=== PATIENT | male | born 1950 | race Two or more races ===

== ENCOUNTER → 2022-07-06 | Emergency (ER) | payer OTHER ==
[~2022-07-06] VITALS: Ht 175.3 cm; Wt 113.4 kg
[~2022-07-06] MED LIST: AMBIEN5 MG PO; COZAAR100 MG PO; TRAMADOL HCL E100 M1
== END | disposition left against medical advice (07) ==
LOC: ER 17:57
DX: R07.9 Chest pain, unspecified (principal); I10 Essential (primary) hypertension

== ENCOUNTER 2023-09-05 09:37 | Outpatient (CLI) | payer OTHER ==
[~2023-09-05 09:37] MED LIST changes: +LASIX40 MG; +METFORMIN HCL1000 M1
== END 2023-09-05 09:38 | disposition home or self-care (01) ==
LOC: NUCLEAR 09:37
PROVIDERS: ATTEND Internal Medicine Cardiovascular Disease
DX: I20.9 Angina pectoris, unspecified (principal)

== ENCOUNTER 2023-12-15 05:50 | Emergency (ER) | payer OTHER ==
[~2023-12-15] VITALS: Ht 157.5 cm; Wt 113.4 kg
[2023-12-15] MEDS ORDERED: PLAVIX75 MG PO (06:03)
[2023-12-15] MEDS ORDERED: ACETAMINOPHEN 500 MG GEL..CAP PO STA (06:22)
== END 2023-12-15 07:39 | disposition home or self-care (01) ==
LOC: ER 05:50
DX: S00.03XA Contusion of scalp, initial encounter (principal); W18.39XA Other fall on same level, initial encounter; Y93.89 Activity, other specified; Y92.013 Bedroom of single-family (private) house as the place of occurrence of the external cause; Y99.9 Unspecified external cause status; Z88.8 Allergy status to other drugs, medicaments and biological substances; E11.9 Type 2 diabetes mellitus without complications; Z79.84 Long term (current) use of oral hypoglycemic drugs

== ENCOUNTER 2023-12-30 14:05 | Emergency (ER) | payer OTHER ==
[~2023-12-30] VITALS: Ht 157.5 cm; Wt 111.6 kg
[~2023-12-30 14:05] MED LIST changes: +PLAVIX75 MG PO
[2023-12-30] MEDS ORDERED: CHILDREN'S ASPI81 MG PO (14:36)
[2023-12-30] MEDS ORDERED: GLIMEPIRIDE2 M1 PO (14:40)
[2023-12-30] MEDS ORDERED: AMBIEN CR12.5 MG PO (14:41)
[2023-12-30] MEDS ORDERED: TRAMADOL HCL E100 M1 PO (14:42)
[2023-12-30] MEDS ORDERED: TOPROL XL50 M1 PO (14:42)
[2023-12-30] MEDS ORDERED: LASIX40 MG PO (14:42)
[2023-12-30] MEDS ORDERED: CLONAZEPAM2 MG PO (14:42)
[2023-12-30] MEDS ORDERED: ISORDIL TITRADOS5 MG PO (14:43)
[2023-12-30] MEDS ORDERED: ATORVASTATIN CA40 MG PO (14:43)
[2023-12-30] MEDS ORDERED: HORIZANT300 MG PO (14:44)
[2023-12-30] MEDS ORDERED: FAMOtidine 10 MG/ML (4ML VIAL) IV ONE (15:45)
[2023-12-30] MEDS ORDERED: 0.9 % SODIUM CHLORIDE 1,000 ML IV ONE (16:00)
[2023-12-30 16:58] LABS: HEMATOCRIT 39.5 % (39.0-48.0); HEMOGLOBIN 13.2 g/dL (13-16.00); MEAN CELL VOLUME 88.7 fL (80.0-100.00); MEAN CORPUSCULAR HEMOGLOBIN 29.6 pg (27.00-32.0); MEAN CORPUSCULAR HGB CONC 33.4 g/dl (32.0-36.0); PLATELET COUNT 157 K/uL (150-450); RED BLOOD COUNT 4.45 M/uL (4.00-6.00); RED CELL DISTRIBUTION WIDTH 14.4 % (11.5-14.5)
[2023-12-30 17:14] LABS: INR 1.02; PROTHROMBIN TIME 11.1 SECONDS (9.0-11.5)
[2023-12-30 17:19] LABS: ALBUMIN 3.5 gm/dL (3.4-5.0); BILIRUBIN TOTAL 0.64 mg/dL (0.3-1.2); CALCIUM 9.4 mg/dL (8.5-10.1); CREATININE SERUM 1.61 mg/dL (0.70-1.30); GFR 42.04; GLOBULINA 4.1 G/DL (2.4-3.5); POTASSIUM 4.56 mEq/L (3.5-5.1); TOTAL PROTEIN 7.6 gm/dL (6.4-8.2)
[2023-12-30 18:34] LABS: FECAL LEUKOCYTES POSITIVE (NEGATIVE); ob NEGATIVE (NEGATIVE)
[2023-12-30] MEDS ORDERED: METRONIDAZOLE500 MG PO (18:43)
[2023-12-30] MEDS ORDERED: PEPCID AC20 MG PO (18:43)
== END 2023-12-30 19:12 | disposition home or self-care (01) ==
LOC: ER 14:07
PROVIDERS: General Practice
DX: R19.7 Diarrhea, unspecified (principal); Z20.822 Contact with and (suspected) exposure to COVID-19; I10 Essential (primary) hypertension; E11.9 Type 2 diabetes mellitus without complications; Z88.6 Allergy status to analgesic agent

== ENCOUNTER 2024-01-01 09:08 | Emergency (ER) | payer OTHER ==
[~2024-01-01] VITALS: Ht 175.3 cm; Wt 64.0 kg
[~2024-01-01 09:08] MED LIST changes: +AMBIEN CR12.5 MG PO; +ATORVASTATIN CA40 MG PO; +CHILDREN'S ASPI81 MG PO; +CLONAZEPAM2 MG PO; +GLIMEPIRIDE2 M1 PO; +HORIZANT300 MG PO; +ISORDIL TITRADOS5 MG PO; +LASIX40 MG PO; +METRONIDAZOLE500 MG PO; +PEPCID AC20 MG PO; +TOPROL XL50 M1 PO; +TRAMADOL HCL E100 M1 PO
[2024-01-01] MEDS ORDERED: METRONIDAZOLE/SODIUM CHLORIDE 500 MG/100 ML PIGGYBACK IV ONE (09:45)
[2024-01-01] MEDS ORDERED: CIPROFLOXACIN IN 5 % DEXTROSE 400 MG/200 ML PIGGYBAG IV ONE (09:45)
[2024-01-01] MEDS ORDERED: 0.9 % SODIUM CHLORIDE 1,000 ML IV SCH (09:45)
[2024-01-01 11:12] LABS: HEMATOCRIT 34.3 % (39.0-48.0); HEMOGLOBIN 11.4 g/dL (13-16.00); MEAN CELL VOLUME 89.8 fL (80.0-100.00); MEAN CORPUSCULAR HEMOGLOBIN 29.8 pg (27.00-32.0); MEAN CORPUSCULAR HGB CONC 33.2 g/dl (32.0-36.0); PLATELET COUNT 142 K/uL (150-450); RED BLOOD COUNT 3.81 M/uL (4.00-6.00); RED CELL DISTRIBUTION WIDTH 14.2 % (11.5-14.5)
== END 2024-01-01 13:09 | disposition home or self-care (01) ==
LOC: ER 09:08
PROVIDERS: Emergency Medicine
DX: K52.89 Other specified noninfective gastroenteritis and colitis (principal); Z88.8 Allergy status to other drugs, medicaments and biological substances

== ENCOUNTER 2024-01-04 11:46 | Emergency (ER) | payer OTHER ==
[~2024-01-04] VITALS: Ht 175.3 cm; Wt 113.4 kg
[2024-01-04 12:08] VITALS: BP 151/69; O2SAT 95
[2024-01-04] MEDS ORDERED: 0.9 % SODIUM CHLORIDE 1,000 ML IV SCH (12:18)
[2024-01-04] MEDS ORDERED: LOPERAMIDE HCL 2 MG CAPSULE PO ONE (12:30)
[2024-01-04 13:19] LABS: HEMATOCRIT 35.4 % (39.0-48.0); MEAN CELL VOLUME 88.5 fL (80.0-100.00); MEAN CORPUSCULAR HEMOGLOBIN 29.9 pg (27.00-32.0); MEAN CORPUSCULAR HGB CONC 33.8 g/dl (32.0-36.0); PLATELET COUNT 160 K/uL (150-450); RED CELL DISTRIBUTION WIDTH 14.4 % (11.5-14.5)
[2024-01-04 13:53] LABS: CALCIUM 9.2 mg/dL (8.5-10.1); CREATININE SERUM 1.39 mg/dL (0.70-1.30); GFR 49.81; POTASSIUM 3.78 mEq/L (3.5-5.1)
[2024-01-04 13:59] LABS: PH,URINE 5.5 (5.0-8.0); URINE APPEARANCE Clear; URINE BILIRRUBIN Negative (NEGATIVE); URINE BLOOD Negative; URINE COLOR Yellow; URINE GLUCOSE Negative (NEGATIVE); URINE KETONE Negative (NEGATIVE); URINE LEUKOCYTE Negative; URINE NITRATE Negative; URINE PROTEIN 30 (NEGATIVE); URINE UROBILINOGEN 0.2 E.U./dl
[2024-01-04 14:13] LABS: URINE BACTERIA 3.7 uL (0.0-1933); URINE CAST 0.45 uL (0.0-1.40); URINE RBC 0.1 uL (0.0-20.8)
[2024-01-04] MEDS ORDERED: METRONIDAZOLE/SODIUM CHLORIDE 500 MG/100 ML PIGGYBACK IV ONE (15:00)
[2024-01-04] MEDS ORDERED: CIPROFLOXACIN IN 5 % DEXTROSE 400 MG/200 ML PIGGYBAG IV ONE (15:00)
== END 2024-01-04 17:37 | disposition home or self-care (01) ==
LOC: ER 11:46
PROVIDERS: Emergency Medicine
DX: K52.9 Noninfective gastroenteritis and colitis, unspecified (principal); I10 Essential (primary) hypertension; E11.9 Type 2 diabetes mellitus without complications; Z79.84 Long term (current) use of oral hypoglycemic drugs; Z88.8 Allergy status to other drugs, medicaments and biological substances

== ENCOUNTER 2024-01-09 12:40 | Emergency (ER) | payer OTHER ==
[~2024-01-09] VITALS: Ht 175.3 cm; Wt 113.9 kg
[2024-01-09] MEDS ORDERED: 0.9 % SODIUM CHLORIDE 500 ML IV ONE (15:00)
[2024-01-09] MEDS ORDERED: LACTOBACILLUS ACIDOPHILUS 1 CAP CAP PO ONE (15:00)
[2024-01-09 16:45] LABS: ALBUMIN 3.2 gm/dL (3.4-5.0); BILIRUBIN TOTAL 0.36 mg/dL (0.3-1.2); CALCIUM 8.6 mg/dL (8.5-10.1); CREATININE SERUM 1.32 mg/dL (0.70-1.30); GFR 52.87; GLOBULINA 3.6 G/DL (2.4-3.5); POTASSIUM 4.46 mEq/L (3.5-5.1); TOTAL PROTEIN 6.8 gm/dL (6.4-8.2)
[2024-01-09] MEDS ORDERED: LOSARTAN POTASSIUM 100 MG TABLET PO ONE (17:45)
[2024-01-09 17:59] LABS: ob POSITIVE (NEGATIVE)
[2024-01-09 18:00] LABS: FECAL LEUKOCYTES NEGATIVE (NEGATIVE)
[2024-01-09 18:10] LABS: HEMATOCRIT 35.8 % (39.0-48.0); HEMOGLOBIN 12.5 g/dL (13-16.00); MEAN CELL VOLUME 88.7 fL (80.0-100.00); MEAN CORPUSCULAR HEMOGLOBIN 30.9 pg (27.00-32.0); MEAN CORPUSCULAR HGB CONC 34.8 g/dl (32.0-36.0); PLATELET COUNT 154 K/uL (150-450); RED BLOOD COUNT 4.04 M/uL (4.00-6.00); RED CELL DISTRIBUTION WIDTH 14.5 % (11.5-14.5)
[2024-01-09 18:27] LABS: PH,URINE 5.5 (5.0-8.0); URINE APPEARANCE Clear; URINE BILIRRUBIN Negative (NEGATIVE); URINE BLOOD Negative; URINE COLOR Yellow; URINE GLUCOSE Negative (NEGATIVE); URINE KETONE Negative (NEGATIVE); URINE LEUKOCYTE Negative; URINE NITRATE Negative; URINE PROTEIN Negative (NEGATIVE); URINE UROBILINOGEN 0.2 E.U./dl
[2024-01-09 18:35] LABS: URINE EPITHELIAL CELLS 0.3 uL (0.0-38.8); URINE RBC 0.4 uL (0.0-20.8)
[2024-01-09] MEDS ORDERED: TRAMADOL HCL 50 MG TABLET PO ONE (20:45)
[2024-01-09] MEDS ORDERED: INTESTINEX680 M1 PO (22:09)
== END 2024-01-09 22:30 | disposition home or self-care (01) ==
LOC: ER 12:40
PROVIDERS: Emergency Medicine; Nurse Practitioner Family
DX: R19.5 Other fecal abnormalities (principal); K80.20 Calculus of gallbladder without cholecystitis without obstruction; J98.11 Atelectasis; E11.9 Type 2 diabetes mellitus without complications; I10 Essential (primary) hypertension; Z88.8 Allergy status to other drugs, medicaments and biological substances

== ENCOUNTER 2024-01-30 18:55 | Emergency (ER) | payer OTHER ==
[~2024-01-30] VITALS: Ht 165.1 cm; Wt 90.7 kg
[~2024-01-30 18:55] MED LIST changes: +INTESTINEX680 M1 PO
[2024-01-30] MEDS ORDERED: MINERAL OIL 30 ML BLIST.PACK PO ONE (19:15)
[2024-01-30] MEDS ORDERED: MAGNESIUM HYDROXIDE 400 MG/5 ML ML PO ONE (19:15)
[2024-01-30] MEDS ORDERED: LACTULOSE 20 G/30 ML BLIST.PACK PO ONE (19:15)
[2024-01-30 19:58] VITALS: BP 150/80; O2SAT 94
== END 2024-01-30 22:53 | disposition home or self-care (01) ==
LOC: ER 18:55
DX: K59.00 Constipation, unspecified (principal); Z88.8 Allergy status to other drugs, medicaments and biological substances; E11.9 Type 2 diabetes mellitus without complications; Z79.84 Long term (current) use of oral hypoglycemic drugs; I11.9 Hypertensive heart disease without heart failure; Z20.822 Contact with and (suspected) exposure to COVID-19

== ENCOUNTER 2024-02-14 16:04 | Emergency (ER) | payer OTHER ==
[~2024-02-14] VITALS: Ht 170.2 cm; Wt 110.7 kg
[2024-02-14 16:22] VITALS: BP 152/86; O2SAT 96
[2024-02-14 17:33] LABS: HEMOGLOBIN 13.2 g/dL (13-16.00); MEAN CELL VOLUME 86.6 fL (80.0-100.00); MEAN CORPUSCULAR HEMOGLOBIN 29.2 pg (27.00-32.0); MEAN CORPUSCULAR HGB CONC 33.7 g/dl (32.0-36.0); PLATELET COUNT 144 K/uL (150-450); RED CELL DISTRIBUTION WIDTH 14.4 % (11.5-14.5)
[2024-02-14 17:58] LABS: URINE APPEARANCE Clear; URINE BILIRRUBIN Negative (NEGATIVE); URINE BLOOD Negative; URINE COLOR Yellow; URINE KETONE Negative (NEGATIVE); URINE LEUKOCYTE Negative; URINE NITRATE Negative; URINE PROTEIN Negative (NEGATIVE); URINE UROBILINOGEN 0.2 E.U./dl
[2024-02-14 18:00] LABS: URINE BACTERIA 9.7 uL (0.0-1933); URINE EPITHELIAL CELLS 2.8 uL (0.0-38.8); URINE WBC 1.8 uL (0.0-23.2)
[2024-02-14 18:03] LABS: ALBUMIN 3.4 gm/dL (3.4-5.0); BILIRUBIN TOTAL 0.28 mg/dL (0.3-1.2); CALCIUM 8.8 mg/dL (8.5-10.1); CREATININE SERUM 1.23 mg/dL (0.70-1.30); GFR 57.36; GLOBULINA 3.8 G/DL (2.4-3.5); POTASSIUM 4.11 mEq/L (3.5-5.1); TOTAL PROTEIN 7.2 gm/dL (6.4-8.2)
[2024-02-14 18:12] LABS: URINE GLUCOSE 100 MG/DL (NEGATIVE); URINE RBC 1.1 uL (0.0-20.8)
[2024-02-14] MEDS ORDERED: SURFAK240 M1 PO (19:11)
[2024-02-14] MEDS ORDERED: PROBIOTIC1 EAC2 PO (19:11)
== END 2024-02-14 19:48 | disposition home or self-care (01) ==
LOC: ER 16:04
PROVIDERS: General Practice
DX: K59.00 Constipation, unspecified (principal); Z88.8 Allergy status to other drugs, medicaments and biological substances; Z87.09 Personal history of other diseases of the respiratory system

== ENCOUNTER 2024-02-22 00:38 | Emergency (ER) | payer OTHER ==
[~2024-02-22] VITALS: Ht 180.3 cm; Wt 95.3 kg
[~2024-02-22 00:38] MED LIST changes: +INSULIN SYRING1 EA29; +LASIX20 MG; +PROBIOTIC1 EAC2 PO; +SURFAK240 M1 PO
[2024-02-22 00:45] VITALS: BP 178/84; O2SAT 95
[2024-02-22] MEDS ORDERED: MIRALAX510 GM PO (04:19)
== END 2024-02-22 04:21 | disposition home or self-care (01) ==
LOC: ER 00:38
DX: K59.00 Constipation, unspecified (principal); Z88.8 Allergy status to other drugs, medicaments and biological substances; I10 Essential (primary) hypertension

== ENCOUNTER → 2024-03-12 | Emergency (ER) | payer OTHER ==
[~2024-03-12] VITALS: Ht 175.3 cm; Wt 111.1 kg
[~2024-03-12] MED LIST changes: +ISOSORBIDE DINI30 MG; +LOSARTAN POTAS100 MG PO; +MIRALAX510 GM PO; +ZOLPIDEM TARTR3.5 MG
== END | disposition left against medical advice (07) ==
LOC: ER 20:41
DX: Z53.21 Procedure and treatment not carried out due to patient leaving prior to being seen by health care provider (principal)

== ENCOUNTER 2024-04-03 20:30 | Emergency (ER) | payer OTHER ==
[~2024-04-03] VITALS: Ht 175.3 cm; Wt 104.3 kg
[2024-04-03 20:51] VITALS: BP 164/90; O2SAT 98
[2024-04-03] MEDS ORDERED: METOCLOPRAMIDE HCL 5 MG/ML VIAL IM STA (23:13)
[2024-04-03] MEDS ORDERED: 0.9 % SODIUM CHLORIDE 1,000 ML IV STA (23:14)
[2024-04-03] MEDS ORDERED: LACTULOSE 20 G/30 ML BLIST.PACK PO STA (23:15)
[2024-04-03] MEDS ORDERED: MINERAL OIL 30 ML BLIST.PACK PO STA (23:15)
[2024-04-03] MEDS ORDERED: MAGNESIUM HYDROXIDE 400 MG/5 ML ML PO STA (23:16)
[2024-04-03] MEDS ORDERED: MINERAL OIL 30 ML BLIST.PACK ONE (23:25)
[2024-04-03] MEDS ORDERED: LACTULOSE 20 G/30 ML BLIST.PACK ONE (23:25)
[2024-04-03] MEDS ORDERED: METOCLOPRAMIDE HCL 5 MG/ML VIAL ONE (23:25)
[2024-04-03] MEDS ORDERED: MAGNESIUM HYDROXIDE 30 ML BLIST.PACK PO ONE (23:26)
[2024-04-03 23:51] LABS: HEMATOCRIT 49.9 % (39.0-48.0); HEMOGLOBIN 16.1 g/dL (13-16.00); MEAN CORPUSCULAR HEMOGLOBIN 28.1 pg (27.00-32.0); MEAN CORPUSCULAR HGB CONC 32.3 g/dl (32.0-36.0); PLATELET COUNT 166 K/uL (150-450); RED BLOOD COUNT 5.73 M/uL (4.00-6.00); RED CELL DISTRIBUTION WIDTH 14.3 % (11.5-14.5)
[2024-04-04] MEDS ORDERED: HYDROGEN PEROXIDE 473 ML BOTTLE TOP ONE
[2024-04-04 00:17] LABS: PARTIAL THROMBOPLASTIN TIME 28.2 SECONDS (22.0-34.0); PROTHROMBIN TIME 10.9 SECONDS (9.0-11.5)
[2024-04-04 00:19] LABS: CALCIUM 10.4 mg/dL (8.5-10.1); GFR 31.81; POTASSIUM 5.71 mEq/L (3.5-5.1)
[2024-04-04 00:29] LABS: CREATININE SERUM 2.05 mg/dL (0.70-1.30)
== END 2024-04-04 02:18 | disposition home or self-care (01) ==
LOC: ER 20:30
DX: K59.01 Slow transit constipation (principal); I10 Essential (primary) hypertension; Z88.8 Allergy status to other drugs, medicaments and biological substances

== ENCOUNTER → 2024-04-14 | Emergency (ER) | payer OTHER ==
[~2024-04-14] VITALS: Ht 175.3 cm; Wt 135.6 kg
== END | disposition left against medical advice (07) ==
LOC: ER 12:55
DX: K59.00 Constipation, unspecified (principal); E11.9 Type 2 diabetes mellitus without complications; Z79.84 Long term (current) use of oral hypoglycemic drugs; I10 Essential (primary) hypertension; Z88.8 Allergy status to other drugs, medicaments and biological substances

== ENCOUNTER 2024-05-17 21:06 | Emergency (ER) | payer OTHER ==
[~2024-05-17] VITALS: Ht 175.3 cm; Wt 105.2 kg
[2024-05-17] MEDS ORDERED: PANTOPRAZOLE SODIUM 40 MG/VIAL VIAL IV PUSH ONE (21:30)
[2024-05-17 21:52] LABS: HEMATOCRIT 40.2 % (39.0-48.0); HEMOGLOBIN 13.2 g/dL (13-16.00); MEAN CORPUSCULAR HEMOGLOBIN 28.5 pg (27.00-32.0); MEAN CORPUSCULAR HGB CONC 32.8 g/dl (32.0-36.0); RED BLOOD COUNT 4.62 M/uL (4.00-6.00)
[2024-05-17 21:53] LABS: PLATELET COUNT 129 K/uL (150-450)
[2024-05-17 22:14] LABS: ALBUMIN 3.7 gm/dL (3.4-5.0); BILIRUBIN TOTAL 1.98 mg/dL (0.3-1.2); CALCIUM 9.3 mg/dL (8.5-10.1); CREATININE SERUM 1.57 mg/dL (0.70-1.30); GFR 43.17; POTASSIUM 4.23 mEq/L (3.5-5.1); TOTAL PROTEIN 7.7 gm/dL (6.4-8.2)
[2024-05-17] MEDS ORDERED: PROTONIX40 MG PO (22:40)
== END 2024-05-17 22:43 | disposition home or self-care (01) ==
LOC: ER 21:06
PROVIDERS: General Practice
DX: K29.70 Gastritis, unspecified, without bleeding (principal); Z88.8 Allergy status to other drugs, medicaments and biological substances; I51.9 Heart disease, unspecified

== ENCOUNTER → 2024-11-14 | Outpatient (CLI) | payer OTHER ==
[~2024-11-14] MED LIST changes: +PROTONIX40 MG PO
== END | disposition home or self-care (01) ==
LOC: RAD 10:42
PROVIDERS: ATTEND General Practice
DX: M79.641 Pain in right hand (principal); M25.539 Pain in unspecified wrist; M19.042 Primary osteoarthritis, left hand